=== PATIENT | male | born 1945 | race Caucasian/White ===

== ENCOUNTER 2020-11-10 06:17 | Inpatient (IN) | payer MEDICARE ==
[2020-11-10 06:48] LABS: #Basophils 0.1 10x3/uL (0.0-0.2); #Eosinphils 0.4 10x3/uL (0.0-0.5); #Monocytes 0.9 10x3/uL (0.0-1.1); #Neutrophils 9.6 10x3/uL (1.5-8.4); %Basophils 0.5 % (0.0-2.0); %Eosinophils 3.3 % (0.0-6.0); %Lymphocytes 8.3 % (18.0-47.0); %Monocytes 7.1 % (0.0-10.0); %Neutrophils 80.3 % (40.0-75.0); Hemoglobin 12.2 g/dL (13.5-17.5); Mean Corpuscular HGB CONC 32.1 g/dL (32.0-36.0); Mean Corpuscular Volume 96.4 fl (81.2-95.1); Mean Platelet Volume 10.9 fl (7.4-10.4); Platelet Count 250 10x3/uL (150-450); RBC Distribution Width 14.6 % (11.5-14.5); Red Blood Cell (RBC) Count 3.94 10x6/uL (4.32-5.72)
[2020-11-10 07:04] LABS: ALT (SGPT) 27 U/L (8-55); AST (SGOT) 32 U/L (5-34); Alkaline Phosphatase 120 U/L (40-110); Anion Gap 15 mmol/L (10-20); BUN (Urea Nitrogen) 28 mg/dL (8.4-25.7); Bilirubin, Total 0.5 mg/dL (0.2-1.2); Calc. Creatinine Clearance 0 mL/min (70-130); Calcium 8.4 mg/dL (7.8-10.44); Carbon Dioxide 28 mmol/L (23-31); Chloride 101 mmol/L (98-107); Globulin 3.1 g/dL (2.4-3.5); Glucose 143 mg/dL (83-110); Potassium 4.7 mmol/L (3.5-5.1); Protein, Total 6.1 g/dL (5.8-8.1); Sodium 139 mmol/L (136-145)
[2020-11-10] MEDS ORDERED: Aspirin Chewable 81 MG TAB ONE (10:17)
[2020-11-10 12:26] LABS: SARS-CoV-2 NAA Rapid Test Not Detected (NotDetected)
[2020-11-10 12:31] VITALS: BMI 24.3
[2020-11-10] MEDS ORDERED: Acetaminophen 325 MG TAB PO PRN ×2 (12:50→17:35)
[2020-11-10] MEDS ORDERED: Ondansetron PF 4 MG/2 ML Vial IVP PRN (12:51)
[2020-11-10] MEDS ORDERED: Ondansetron ODT 4 MG TAB PO PRN (12:52)
[2020-11-10 13:57] LABS: Troponin I 0.018 ng/mL (< 0.028)
[2020-11-10] MEDS ORDERED: Morphine 2 MG/ML VIAL SLOW IVP SCH (14:15)
[2020-11-10] MEDS ORDERED: Morphine 2 MG/ML VIAL ONE (14:39)
[2020-11-10] MEDS ORDERED: Guaifenesin DM 100-10/5 ML UDCUP PO PRN (17:28)
[2020-11-10] MEDS ORDERED: HYDROcodone/Acetaminophen 5/325 mg Tablet PO PRN (17:28)
[2020-11-10] MEDS ORDERED: HYDROcodone/Acetaminophen 10/325 mg Tablet PO PRN (17:36)
[2020-11-10] MEDS ORDERED: Morphine 2 MG/ML VIAL SLOW IVP PRN (17:41)
[2020-11-10] MEDS ORDERED: Furosemide 40 MG/4 ML VIAL SLOW IVP SCH (18:15)
[2020-11-10] MEDS ORDERED: Dextrose 50% Abboject 50 ML SYRINGE SLOW IVP PRN (18:27)
[2020-11-10] MEDS ORDERED: Dextrose 5% in Water 1,000 ML IV PRN (18:27)
[2020-11-10] MEDS: Apixaban 5 MG TAB PO SCH (21:35)
[2020-11-10] MEDS: Simvastatin 10 MG TAB PO SCH (21:35)
[2020-11-10] MEDS: Carvedilol 12.5 MG TAB PO SCH (21:36)
[2020-11-11 05:12] LABS: Anion Gap 14 mmol/L (10-20); BUN (Urea Nitrogen) 25 mg/dL (8.4-25.7); Calc. Creatinine Clearance 75 mL/min (70-130); Calcium 8.3 mg/dL (7.8-10.44); Carbon Dioxide 30 mmol/L (23-31); Chloride 100 mmol/L (98-107); Glucose 120 mg/dL (83-110); Potassium 4.6 mmol/L (3.5-5.1); Sodium 139 mmol/L (136-145)
[2020-11-11 05:39] LABS: #Basophils 0.1 10x3/uL (0.0-0.2); #Eosinphils 0.4 10x3/uL (0.0-0.5); #Monocytes 0.8 10x3/uL (0.0-1.1); #Neutrophils 10.3 10x3/uL (1.5-8.4); %Basophils 0.4 % (0.0-2.0); %Eosinophils 2.8 % (0.0-6.0); %Lymphocytes 8.6 % (18.0-47.0); %Monocytes 6.5 % (0.0-10.0); %Neutrophils 81.2 % (40.0-75.0); Hemoglobin 12.5 g/dL (13.5-17.5); Mean Corpuscular HGB CONC 31.6 g/dL (32.0-36.0); Mean Corpuscular Hemoglobin 30.6 pg (27.0-33.0); Mean Corpuscular Volume 96.6 fl (81.2-95.1); Mean Platelet Volume 11.1 fl (7.4-10.4); Platelet Count 239 10x3/uL (150-450); RBC Distribution Width 14.8 % (11.5-14.5); Red Blood Cell (RBC) Count 4.09 10x6/uL (4.32-5.72); White Blood Cell (WBC) Count 12.7 10x3/uL (3.5-10.5)
[2020-11-11] MEDS ORDERED: glipiZIDE 5 MG TAB PO SCH (09:00)
[2020-11-11] MEDS ORDERED: Furosemide 40 MG/4 ML VIAL SLOW IVP SCH (09:00)
[2020-11-11] MEDS: Potassium Chloride 10 MEQ TAB PO SCH (09:10)
[2020-11-11] MEDS: Aspirin 81 mg Enteric Coated Tablet PO SCH (09:10)
[2020-11-11] MEDS: Apixaban 5 MG TAB PO SCH ×2 (09:11→21:53)
[2020-11-11] MEDS: Lisinopril 20 MG TAB PO SCH (09:14)
[2020-11-11] MEDS: Carvedilol 12.5 MG TAB PO SCH ×2 (09:14→21:53)
[2020-11-11] MEDS: HumaLOG 300 UNITS/3 ML VIAL SC PRN ×2 (16:52→22:00)
[2020-11-11] MEDS: Simvastatin 10 MG TAB PO SCH (21:53)
[2020-11-12] MEDS ORDERED: Furosemide 40 MG TAB PO SCH (07:30)
[2020-11-12] MEDS: Apixaban 5 MG TAB PO SCH ×2 (08:17→20:40)
[2020-11-12] MEDS: Carvedilol 12.5 MG TAB PO SCH ×2 (08:17→20:41)
[2020-11-12] MEDS: Lisinopril 20 MG TAB PO SCH (08:17)
[2020-11-12] MEDS: Aspirin 81 mg Enteric Coated Tablet PO SCH (08:17)
[2020-11-12] MEDS: Potassium Chloride 10 MEQ TAB PO SCH (08:17)
[2020-11-12] MEDS ORDERED: Doxycycline 100 MG CAP PO SCH (09:30)
[2020-11-12] MEDS: Furosemide 40 MG/4 ML VIAL SLOW IVP SCH (14:26)
[2020-11-12] MEDS: Simvastatin 10 MG TAB PO SCH (20:41)
[2020-11-12] MEDS: Doxycycline 100 MG CAP PO SCH (20:41)
[2020-11-12] MEDS ORDERED: Sulfameth/Trimethoprim DS 800-160mg TAB PO SCH (21:00)
[2020-11-12] MEDS: HumaLOG 300 UNITS/3 ML VIAL SC PRN (22:00)
[2020-11-13] MEDS: Furosemide 40 MG/4 ML VIAL SLOW IVP SCH ×2 (05:00→13:47)
[2020-11-13 06:36] LABS: #Basophils 0.1 10x3/uL (0.0-0.2); #Eosinphils 0.3 10x3/uL (0.0-0.5); #Monocytes 0.8 10x3/uL (0.0-1.1); #Neutrophils 7.8 10x3/uL (1.5-8.4); %Basophils 0.7 % (0.0-2.0); %Eosinophils 3.3 % (0.0-6.0); %Monocytes 8.3 % (0.0-10.0); %Neutrophils 77.3 % (40.0-75.0); Hemoglobin 12.7 g/dL (13.5-17.5); Mean Corpuscular HGB CONC 31.1 g/dL (32.0-36.0); Mean Corpuscular Hemoglobin 30.4 pg (27.0-33.0); Mean Corpuscular Volume 97.8 fl (81.2-95.1); Mean Platelet Volume 11.3 fl (7.4-10.4); Platelet Count 223 10x3/uL (150-450); RBC Distribution Width 14.9 % (11.5-14.5); Red Blood Cell (RBC) Count 4.18 10x6/uL (4.32-5.72); White Blood Cell (WBC) Count 10.1 10x3/uL (3.5-10.5)
[2020-11-13 06:45] LABS: BUN (Urea Nitrogen) 27 mg/dL (8.4-25.7); Calc. Creatinine Clearance 80 mL/min (70-130); Calcium 8.6 mg/dL (7.8-10.44); Glucose 94 mg/dL (83-110)
[2020-11-13 07:22] LABS: Anion Gap 17 mmol/L (10-20); Carbon Dioxide 33 mmol/L (23-31); Chloride 98 mmol/L (98-107); Potassium 4.4 mmol/L (3.5-5.1); Sodium 144 mmol/L (136-145)
[2020-11-13] MEDS: Apixaban 5 MG TAB PO SCH ×2 (08:11→21:18)
[2020-11-13] MEDS: Carvedilol 12.5 MG TAB PO SCH ×2 (08:11→21:19)
[2020-11-13] MEDS: Doxycycline 100 MG CAP PO SCH ×2 (08:11→21:18)
[2020-11-13] MEDS: Aspirin 81 mg Enteric Coated Tablet PO SCH (08:11)
[2020-11-13] MEDS: Potassium Chloride 10 MEQ TAB PO SCH (08:11)
[2020-11-13] MEDS: Lisinopril 20 MG TAB PO SCH (08:49)
[2020-11-13] MEDS: Simvastatin 10 MG TAB PO SCH (21:18)
[2020-11-14] MEDS: Furosemide 40 MG/4 ML VIAL SLOW IVP SCH ×2 (05:18→14:53)
[2020-11-14 05:25] LABS: #Basophils 0.1 10x3/uL (0.0-0.2); #Eosinphils 0.4 10x3/uL (0.0-0.5); #Monocytes 0.9 10x3/uL (0.0-1.1); #Neutrophils 7.9 10x3/uL (1.5-8.4); %Basophils 0.6 % (0.0-2.0); %Eosinophils 3.4 % (0.0-6.0); %Lymphocytes 10.8 % (18.0-47.0); %Monocytes 8.9 % (0.0-10.0); %Neutrophils 76.1 % (40.0-75.0); Hemoglobin 12.3 g/dL (13.5-17.5); Mean Corpuscular HGB CONC 30.6 g/dL (32.0-36.0); Mean Platelet Volume 11.2 fl (7.4-10.4); Platelet Count 216 10x3/uL (150-450); RBC Distribution Width 14.7 % (11.5-14.5); White Blood Cell (WBC) Count 10.4 10x3/uL (3.5-10.5)
[2020-11-14 05:41] LABS: BUN (Urea Nitrogen) 26 mg/dL (8.4-25.7); Calc. Creatinine Clearance 81 mL/min (70-130); Calcium 8.5 mg/dL (7.8-10.44); Glucose 117 mg/dL (83-110)
[2020-11-14 06:04] LABS: Anion Gap 15 mmol/L (10-20); Carbon Dioxide 37 mmol/L (23-31); Chloride 94 mmol/L (98-107); Potassium 4.3 mmol/L (3.5-5.1); Sodium 142 mmol/L (136-145)
[2020-11-14] MEDS: Carvedilol 12.5 MG TAB PO SCH ×2 (09:47→20:37)
[2020-11-14] MEDS: Apixaban 5 MG TAB PO SCH ×2 (09:47→20:43)
[2020-11-14] MEDS: Aspirin 81 mg Enteric Coated Tablet PO SCH (09:47)
[2020-11-14] MEDS: Doxycycline 100 MG CAP PO SCH ×2 (09:47→20:43)
[2020-11-14] MEDS: Potassium Chloride 10 MEQ TAB PO SCH (09:48)
[2020-11-14] MEDS: Lisinopril 20 MG TAB PO SCH (09:48)
[2020-11-14] MEDS ORDERED: Furosemide 40 MG/4 ML VIAL SLOW IVP SCH (15:30)
[2020-11-14] MEDS: Simvastatin 10 MG TAB PO SCH (20:43)
[2020-11-14] MEDS: guaiFENesin ER 600 MG TAB PO SCH (20:46)
[2020-11-14] MEDS: HumaLOG 300 UNITS/3 ML VIAL SC PRN (20:49)
[2020-11-15 05:26] LABS: BUN (Urea Nitrogen) 31 mg/dL (8.4-25.7); Calc. Creatinine Clearance 87 mL/min (70-130); Calcium 8.6 mg/dL (7.8-10.44); Glucose 90 mg/dL (83-110)
[2020-11-15 05:34] LABS: Anion Gap 12 mmol/L (10-20); Carbon Dioxide 39 mmol/L (23-31); Chloride 95 mmol/L (98-107); Potassium 4.2 mmol/L (3.5-5.1); Sodium 142 mmol/L (136-145)
[2020-11-15 05:43] LABS: #Basophils 0.1 10x3/uL (0.0-0.2); #Eosinphils 0.3 10x3/uL (0.0-0.5); #Neutrophils 8.8 10x3/uL (1.5-8.4); %Basophils 0.5 % (0.0-2.0); %Eosinophils 2.9 % (0.0-6.0); %Lymphocytes 10.8 % (18.0-47.0); %Monocytes 8.8 % (0.0-10.0); %Neutrophils 76.6 % (40.0-75.0); Hemoglobin 12.7 g/dL (13.5-17.5); Mean Corpuscular HGB CONC 31.2 g/dL (32.0-36.0); Mean Corpuscular Hemoglobin 30.3 pg (27.0-33.0); Mean Corpuscular Volume 97.1 fl (81.2-95.1); Mean Platelet Volume 11.6 fl (7.4-10.4); Platelet Count 200 10x3/uL (150-450); RBC Distribution Width 14.8 % (11.5-14.5); Red Blood Cell (RBC) Count 4.19 10x6/uL (4.32-5.72); White Blood Cell (WBC) Count 11.4 10x3/uL (3.5-10.5)
[2020-11-15] MEDS: Furosemide 40 MG/4 ML VIAL SLOW IVP SCH ×2 (05:51→15:12)
[2020-11-15] MEDS: Apixaban 5 MG TAB PO SCH ×2 (10:16→21:46)
[2020-11-15] MEDS: Aspirin 81 mg Enteric Coated Tablet PO SCH (10:16)
[2020-11-15] MEDS: Potassium Chloride 10 MEQ TAB PO SCH (10:16)
[2020-11-15] MEDS: Carvedilol 12.5 MG TAB PO SCH ×2 (10:16→21:46)
[2020-11-15] MEDS: Lisinopril 20 MG TAB PO SCH (10:16)
[2020-11-15] MEDS: guaiFENesin ER 600 MG TAB PO SCH ×2 (10:16→21:46)
[2020-11-15] MEDS: Doxycycline 100 MG CAP PO SCH ×2 (10:16→21:46)
[2020-11-15] MEDS: Simvastatin 10 MG TAB PO SCH (21:46)
[2020-11-16] MEDS: Furosemide 40 MG/4 ML VIAL SLOW IVP SCH (05:20)
[2020-11-16 05:39] LABS: #Basophils 0.1 10x3/uL (0.0-0.2); #Eosinphils 0.3 10x3/uL (0.0-0.5); #Monocytes 0.8 10x3/uL (0.0-1.1); #Neutrophils 6.9 10x3/uL (1.5-8.4); %Basophils 0.8 % (0.0-2.0); %Eosinophils 3.2 % (0.0-6.0); %Lymphocytes 12.2 % (18.0-47.0); %Monocytes 8.9 % (0.0-10.0); %Neutrophils 74.5 % (40.0-75.0); Hemoglobin 12.4 g/dL (13.5-17.5); Mean Corpuscular HGB CONC 31.4 g/dL (32.0-36.0); Mean Corpuscular Hemoglobin 30.7 pg (27.0-33.0); Mean Corpuscular Volume 97.8 fl (81.2-95.1); Mean Platelet Volume 11.6 fl (7.4-10.4); Platelet Count 169 10x3/uL (150-450); RBC Distribution Width 14.7 % (11.5-14.5); Red Blood Cell (RBC) Count 4.04 10x6/uL (4.32-5.72); White Blood Cell (WBC) Count 9.3 10x3/uL (3.5-10.5)
[2020-11-16 06:01] LABS: ALT (SGPT) 19 U/L (8-55); AST (SGOT) 22 U/L (5-34); Albumin 2.5 g/dL (3.4-4.8); Alkaline Phosphatase 102 U/L (40-110); Anion Gap 13 mmol/L (10-20); BUN (Urea Nitrogen) 28 mg/dL (8.4-25.7); Bilirubin, Total 1.1 mg/dL (0.2-1.2); Calc. Creatinine Clearance 94 mL/min (70-130); Calcium 8.3 mg/dL (7.8-10.44); Carbon Dioxide 35 mmol/L (23-31); Chloride 97 mmol/L (98-107); Globulin 3.1 g/dL (2.4-3.5); Glucose 112 mg/dL (83-110); Magnesium 1.9 mg/dL (1.6-2.6); Protein, Total 5.6 g/dL (5.8-8.1); Sodium 141 mmol/L (136-145)
[2020-11-16] MEDS: Apixaban 5 MG TAB PO SCH ×2 (08:10→21:28)
[2020-11-16] MEDS: Carvedilol 12.5 MG TAB PO SCH (08:10)
[2020-11-16] MEDS: Aspirin 81 mg Enteric Coated Tablet PO SCH (08:10)
[2020-11-16] MEDS: Potassium Chloride 10 MEQ TAB PO SCH (08:11)
[2020-11-16] MEDS: Lisinopril 20 MG TAB PO SCH (08:11)
[2020-11-16] MEDS: guaiFENesin ER 600 MG TAB PO SCH ×2 (08:11→21:28)
[2020-11-16] MEDS: Doxycycline 100 MG CAP PO SCH ×2 (09:58→21:28)
[2020-11-16] MEDS: Furosemide 20 MG TAB PO SCH (14:26)
[2020-11-16] MEDS: Carvedilol 3.125 MG TAB PO SCH (17:38)
[2020-11-16] MEDS ORDERED: Carvedilol 6.25 MG TAB PO SCH (21:00)
[2020-11-16] MEDS: Simvastatin 10 MG TAB PO SCH (21:28)
[2020-11-17 06:09] LABS: #Basophils 0.1 10x3/uL (0.0-0.2); #Eosinphils 0.3 10x3/uL (0.0-0.5); #Monocytes 0.8 10x3/uL (0.0-1.1); #Neutrophils 8.4 10x3/uL (1.5-8.4); %Basophils 0.7 % (0.0-2.0); %Eosinophils 2.4 % (0.0-6.0); %Lymphocytes 11.1 % (18.0-47.0); %Monocytes 7.7 % (0.0-10.0); %Neutrophils 77.6 % (40.0-75.0); Hemoglobin 12.4 g/dL (13.5-17.5); Mean Corpuscular HGB CONC 31.1 g/dL (32.0-36.0); Mean Corpuscular Hemoglobin 30.2 pg (27.0-33.0); Mean Corpuscular Volume 97.3 fl (81.2-95.1); Mean Platelet Volume 11.8 fl (7.4-10.4); Platelet Count 162 10x3/uL (150-450); RBC Distribution Width 14.7 % (11.5-14.5); White Blood Cell (WBC) Count 10.8 10x3/uL (3.5-10.5)
[2020-11-17 06:11] LABS: BUN (Urea Nitrogen) 32 mg/dL (8.4-25.7); Calc. Creatinine Clearance 94 mL/min (70-130); Calcium 8.5 mg/dL (7.8-10.44); Glucose 128 mg/dL (83-110)
[2020-11-17 06:19] LABS: Anion Gap 15 mmol/L (10-20); Carbon Dioxide 35 mmol/L (23-31); Chloride 95 mmol/L (98-107); Potassium 4.3 mmol/L (3.5-5.1); Sodium 141 mmol/L (136-145)
[2020-11-17] MEDS ORDERED: Lisinopril 5 MG TAB PO SCH (09:00)
[2020-11-17] MEDS: guaiFENesin ER 600 MG TAB PO SCH (09:30)
[2020-11-17] MEDS: Furosemide 20 MG TAB PO SCH (09:31)
[2020-11-17] MEDS: Potassium Chloride 10 MEQ TAB PO SCH (09:33)
[2020-11-17] MEDS: Aspirin 81 mg Enteric Coated Tablet PO SCH (09:34)
[2020-11-17] MEDS: Apixaban 5 MG TAB PO SCH (09:34)
[2020-11-17] MEDS: Doxycycline 100 MG CAP PO SCH (09:38)
[2020-11-17] MEDS: Carvedilol 3.125 MG TAB PO SCH (09:38)
[2020-11-17] MEDS: HumaLOG 300 UNITS/3 ML VIAL SC PRN (12:20)
[2020-11-17 17:15] VITALS: BP 106/62; TEMP 97.6
== END 2020-11-17 15:45 | DRG 291 ==
LOC: CSHERS 06:17 → CSHERHOLD 12:09 → CSHTELE 17:15
PROVIDERS: ADMIT Internal Medicine; ATTEND Internal Medicine
DX: I11.0 Hypertensive heart disease with heart failure (principal); J96.01 Acute respiratory failure with hypoxia; I48.20 Chronic atrial fibrillation, unspecified; K52.1 Toxic gastroenteritis and colitis; L03.116 Cellulitis of left lower limb; I50.23 Acute on chronic systolic (congestive) heart failure; Z20.822 Contact with and (suspected) exposure to COVID-19; E78.5 Hyperlipidemia, unspecified; I25.10 Atherosclerotic heart disease of native coronary artery without angina pectoris; R63.0 Anorexia; T36.95XA Adverse effect of unspecified systemic antibiotic, initial encounter; E11.621 Type 2 diabetes mellitus with foot ulcer; L97.529 Non-pressure chronic ulcer of other part of left foot with unspecified severity; E11.628 Type 2 diabetes mellitus with other skin complications; M54.9 Dorsalgia, unspecified; E11.51 Type 2 diabetes mellitus with diabetic peripheral angiopathy without gangrene; E11.42 Type 2 diabetes mellitus with diabetic polyneuropathy; R47.81 Slurred speech; Z95.810 Presence of automatic (implantable) cardiac defibrillator; I42.9 Cardiomyopathy, unspecified; I49.5 Sick sinus syndrome; Z89.421 Acquired absence of other right toe(s); Z89.432 Acquired absence of left foot; Z79.01 Long term (current) use of anticoagulants; Z79.84 Long term (current) use of oral hypoglycemic drugs; Z79.82 Long term (current) use of aspirin; Z79.899 Other long term (current) drug therapy; T81.89XD Other complications of procedures, not elsewhere classified, subsequent encounter; S98.921 Partial traumatic amputation of right foot, level unspecified; L89.896 Pressure-induced deep tissue damage of other site; R60.0 Localized edema; I73.9 Peripheral vascular disease, unspecified; I87.2 Venous insufficiency (chronic) (peripheral)
CPT/HCPCS: 11042; 36415; 36416; 70450; 71045; 80048; 80053; 83735; 83880; 84145; 84484; 85025; 86140; 87040; 87324; 87449; 93005; 93306; 94760; 97605; 99214; G0463; J1940; J2270; U0002